=== PATIENT | male | born 1955 | race Caucasian/White ===

== ENCOUNTER 2020-10-03 12:22 | Emergency (ER) | payer OTHER ==
--- NOTE | 2020-10-03 13:54 | ED Physician Documentation ---
PD HPI UPPER EXT INJURY - Stated complaint Stated Complaint: RIGHT THUMB PX - Chief complaint Chief Complaint: Ext Problem - History obtained from History obtained from: Patient - Additonal information Additional information: Patient comes emergency department chief complaint of pain in the tip of right thumb. He states is been going on about a week, and is not really sure what he did to himself. He noticed a subungual hematoma that came up around that time, and also noticed what appeared to be a superficial puncture on his thumb tip. He states that he had been cutting brush including a lot of stickers and that although he was wearing gloves, there was a hole in the tip of his right thumb in the glove and that he may have been poked through there. Patient denies any fevers or chills. He states the thumb tip feels swollen but he has not noticed the swelling spreading. He states it does not keep him awake at night, but he does notice the discomfort a little. No streaking or fevers or chills. No direct trauma that he knows of. Patient denies any other complaints at this time. Review of Systems Ten Systems: 10 systems reviewed and negative Constitutional: reports: Reviewed and negative Eyes: reports: Reviewed and negative Ears: reports: Reviewed and negative Nose: reports: Reviewed and negative Throat: reports: Reviewed and negative Cardiac: reports: Reviewed and negative Respiratory: reports: Reviewed and negative GI: reports: Reviewed and negative : reports: Reviewed and negative Skin: reports: Reviewed and negative Musculoskeletal: reports: Extremity pain, Extremity swelling Neurologic: reports: Reviewed and negative Psychiatric: reports: Reviewed and negative Endocrine: reports: Reviewed and negative Immunocompromised: reports: Reviewed and negative PD PAST MEDICAL HISTORY - Allergies Allergies/Adverse Reactions: Allergies Allergy/AdvReac Type Severity Reaction Status Date / Time No Known Drug Allergies Allergy Verified 10/03/20 12:29 PD ED PE NORMAL - Vitals Vital signs reviewed: Yes - General General: Alert and oriented X 3, No acute distress, Well developed/nourished - HEENT HEENT: Atraumatic, PERRL, EOMI, Moist mucous membranes - Neck Neck: Supple, no meningeal sign - Cardiac Cardiac: Strong equal pulses - Respiratory Respiratory: No respiratory distress - Derm Derm: Normal color, Warm and dry, No rash, Other (No erythema or induration of right thumb. 0.5 cm subungual hematoma, which appears older.) - Extremities Extremities: No deformity, Other (Slight edema right distal thumb) - Neuro Neuro: Alert and oriented X 3, canteen attendant 2-12 intact, No motor deficit, No sensory deficit, Normal speech - Psych Psych: Normal mood, Normal affect Results - Vitals Vitals: Vital Signs - 24 hr 10/03/20 12:25 Temperature 36.6 C Heart Rate 78 Respiratory 16 Rate Blood Pressure 134/85 H O2 Saturation 95 Oxygen O2 Source Room air PD MEDICAL DECISION MAKING - ED course Complexity details: considered differential, d/w patient ED course: I discussed with the patient that I am not sure what has caused his subungual hematoma, or why his thumb is tender and a little edematous. There is no evidence of a retained foreign body, and patient states that he does not think that anything would have penetrated deeply, anyway. It is hard to imagine that any small foreign material that went in the volar surface of his thumb pad would have been able to get around the bone to create the hematoma in the location that the patient has it. I have discussed with the patient that I do not want to try to remove any sort of splinter or other foreign material from his thumb without imaging, and even then, that this is very difficult. The patient is quite sure he did not have any opportunity to have a metallic or plastic foreign body enter his thumb and thinks if anything it would have been a thorn poked him. We have discussed the signs of infection, of which I do not find any in this patient. I discussed with him that most likely, his symptoms will be self- limited and will blow over on their own. We have discussed the usual indications for return. Departure - Departure Disposition: 01 Home, Self Care Clinical Impression: Finger pain, right Condition: Stable Instructions: ED Contusion Finger Comments: There is no evidence of infection of your thumb. It is not clear exactly what has caused the bleeding under your nail, but it is highly unlikely that any sort of foreign material could have reached that spot by going in to the pad of your thumb, as the bones in the way. You may have a small sliver/foreign body in your thumb, but there is no way that this will be able to be found and removed. Your body will ultimately push the sliver to the surface if there is a sliver there, or if it is small enough, your body will simply break it down and get rid of it on its own. You may use ice to help with the pain and swelling. If it appears that a sliver is working its way toward the surface, you may try hot soaks to help encourage the sliver to come up. If you begin to notice deepening redness of your thumb, or if you have redness or swelling or firmness spreading down the thumb, then you should have it rechecked as you may be developing infection. However, there is no evidence of that at this time.
[2020-10-03 14:08] VITALS: BP 138/74
== END 2020-10-03 14:08 | disposition home or self-care (01) ==
LOC: ED 12:22
DX: M79.644 Pain in right finger(s) (principal); S60.111A Contusion of right thumb with damage to nail, initial encounter; X58.XXXA Exposure to other specified factors, initial encounter
CPT/HCPCS: 99281; 99282

== ENCOUNTER 2021-11-24 09:17 | Outpatient (CLI) | payer MEDICARE, OTHER ==
[2021-11-24 15:46] LABS: BASOPHILS # (AUTO) 0.1 10^3/uL (0.0-0.1); BASOPHILS % (AUTO) 1.2 %; EOSINOPHILS # (AUTO) 0.5 10^3/uL (0.0-0.7); EOSINOPHILS % (AUTO) 10.3 %; HCT - HEMATOCRIT 44.7 % (42.0-52.0); HGB - HEMOGLOBIN 15.9 g/dL (14.0-18.0); LYMPHOCYTES # (AUTO) 1.4 10^3/uL (1.5-3.5); LYMPHOCYTES % (AUTO) 27.4 %; MEAN CORPUSCULAR HEMOGLOBIN 35.3 pg (27.0-31.0); MEAN CORPUSCULAR HGB CONC 35.6 g/dL (32.0-36.0); MEAN CORPUSCULAR VOLUME 99.3 fL (80.0-94.0); MEAN PLATELET VOLUME 9.4 fL (7.4-11.4); MONOCYTES # (AUTO) 0.5 10^3/uL (0.0-1.0); MONOCYTES % (AUTO) 10.1 %; NEUTROPHILS # (AUTO) 2.5 10^3/uL (1.5-6.6); NEUTROPHILS % (AUTO) 50.4 %; PLT - PLATELET COUNT 247 10^3/uL (130-450); RED CELL DISTRIBUTION WIDTH 13.6 % (12.0-15.0)
[2021-11-24 15:48] LABS: BILIRUBIN,URINE NEGATIVE (NEGATIVE); GLUCOSE, URINE (UA) NEGATIVE (NEGATIVE); KETONES,URINE (UA) NEGATIVE (NEGATIVE); LEUKOCYTE ESTERASE, URINE NEGATIVE (NEGATIVE); NITRITE,URINE NEGATIVE (NEGATIVE); OCCULT BLOOD,URINE NEGATIVE (NEGATIVE); PROTEIN,URINE NEGATIVE (NEGATIVE); UROBILINOGEN,URINE 0.2 (NORMAL) E.U./dL (NORMAL)
[2021-11-24 16:03] LABS: BACTERIA,URINE None Seen /HPF (None Seen); CLARITY,URINE CLEAR (CLEAR); RBC,URINE None Seen /HPF (0-5); SQUAMOUS EPITHELIAL CELL,UR NONE SEEN (<= Few); WBC,URINE 0-3 /HPF (0-3)
[2021-11-24 16:08] LABS: ALBUMIN 4.8 g/dL (3.2-5.5); ALBUMIN/GLOBULIN RATIO 1.6 (1.0-2.2); ALKALINE PHOSPHATASE 61 IU/L (42-121); ALT ALANINE AMINOTRANSFERASE 32 IU/L (10-60); AST ASPARTATE AMINOTRANSFERASE 33 IU/L (10-42); BUN - BLOOD UREA NITROGEN 17 mg/dL (6-20); CALCIUM 10.1 mg/dL (8.5-10.3); CARBON DIOXIDE - CO2 30 mmol/L (21-32); CHLORIDE 97 mmol/L (101-111); CHOL/HDL RATIO 2.3 (<5.0); CHOLESTEROL 272 mg/dL; CREATININE 0.7 mg/dL (0.6-1.2); GFR - MDRD 113 (>89); GLUCOSE 93 mg/dL (70-100); HDL CHOLESTEROL 120 mg/dL; LDL CHOLESTEROL,CALCULATED 142 mg/dL; LDL/HDL RATIO 1.2 (<3.6); POTASSIUM 3.8 mmol/L (3.5-5.0); SODIUM 135 mmol/L (135-145); TOTAL PROTEIN 7.8 g/dL (6.7-8.2); TRIGLYCERIDES 50 mg/dL; VLDL CHOLESTEROL 10 mg/dL
[2021-11-24 16:11] LABS: PSA TOTAL 0.857 ng/mL (0.000-2.000)
== END 2021-11-24 23:59 | disposition home or self-care (01) ==
LOC: LAB.R 09:17
PROVIDERS: ATTEND Internal Medicine
DX: Z00.00 Encounter for general adult medical examination without abnormal findings (principal); E78.5 Hyperlipidemia, unspecified; N40.0 Benign prostatic hyperplasia without lower urinary tract symptoms; I47.1 Supraventricular tachycardia; G37.3 Acute transverse myelitis in demyelinating disease of central nervous system
CPT/HCPCS: 80053; 80061; 81001; 83721; 84153; 84443; 85025; 87086

== ENCOUNTER 2022-01-24 11:57 | Outpatient (CLI) | payer MEDICARE, OTHER ==
--- NOTE | 2022-01-24 13:22 | XRAY Report ---
PROCEDURE: Chest 2 View X-Ray INDICATIONS: COUGH TECHNIQUE: 2 views of the chest were acquired. COMPARISON: None FINDINGS: Surgical changes and devices: None. Lungs and pleura: No pleural effusions or pneumothorax. Lungs are clear. Mediastinum: Mediastinal contours are normal. Heart size is normal. Bones and chest wall: No suspicious bony abnormalities. Soft tissues appear unremarkable. IMPRESSION: No acute cardiopulmonary disease process. Reviewed by: Becki Stanton MD, PhD on 01/24/2022 1:21 PM PST Approved by: Becki Stanton MD, PhD on 01/24/2022 1:21 PM [facility] Station ID: [id number]
== END 2022-01-24 11:58 | disposition home or self-care (01) ==
LOC: DI 11:57
PROVIDERS: ATTEND Internal Medicine
DX: R05.9 Cough, unspecified (principal)

== ENCOUNTER 2023-02-28 10:00 | Outpatient (CLI) | payer MEDICARE, OTHER ==
[2023-02-28 10:12] LABS: BASOPHILS # (AUTO) 0.1 10^3/uL (0.0-0.1); BASOPHILS % (AUTO) 1.2 %; EOSINOPHILS # (AUTO) 0.3 10^3/uL (0.0-0.7); EOSINOPHILS % (AUTO) 6.9 %; HCT - HEMATOCRIT 48.2 % (42.0-52.0); HGB - HEMOGLOBIN 15.5 g/dL (14.0-18.0); LYMPHOCYTES # (AUTO) 1.4 10^3/uL (1.5-3.5); LYMPHOCYTES % (AUTO) 31.8 %; MEAN CORPUSCULAR HEMOGLOBIN 30.3 pg (27.0-31.0); MEAN CORPUSCULAR HGB CONC 32.2 g/dL (32.0-36.0); MEAN CORPUSCULAR VOLUME 94.1 fL (80.0-94.0); MEAN PLATELET VOLUME 8.3 fL (7.4-11.4); MONOCYTES # (AUTO) 0.4 10^3/uL (0.0-1.0); MONOCYTES % (AUTO) 9.4 %; NEUTROPHILS # (AUTO) 2.2 10^3/uL (1.5-6.6); PLT - PLATELET COUNT 238 10^3/uL (130-450); RED BLOOD COUNT 5.12 10^6/uL (4.70-6.10); RED CELL DISTRIBUTION WIDTH 13.7 % (12.0-15.0); WHITE BLOOD COUNT 4.3 x10^3/uL (4.8-10.8)
[2023-02-28 10:18] LABS: BILIRUBIN,URINE NEGATIVE (NEGATIVE); GLUCOSE, URINE (UA) NEGATIVE (NEGATIVE); KETONES,URINE (UA) NEGATIVE (NEGATIVE); LEUKOCYTE ESTERASE, URINE NEGATIVE (NEGATIVE); NITRITE,URINE NEGATIVE (NEGATIVE); OCCULT BLOOD,URINE NEGATIVE (NEGATIVE); PROTEIN,URINE NEGATIVE (NEGATIVE); UROBILINOGEN,URINE 0.2 (NORMAL) E.U./dL (NORMAL)
[2023-02-28 10:23] LABS: CLARITY,URINE CLEAR (CLEAR)
[2023-02-28 10:34] LABS: ALBUMIN 4.6 g/dL (3.2-5.5); ALBUMIN/GLOBULIN RATIO 1.7 (1.0-2.2); ALKALINE PHOSPHATASE 60 IU/L (42-121); ALT ALANINE AMINOTRANSFERASE 26 IU/L (10-60); AST ASPARTATE AMINOTRANSFERASE 23 IU/L (10-42); BILIRUBIN,TOTAL 0.8 mg/dL (0.2-1.0); BUN - BLOOD UREA NITROGEN 16 mg/dL (6-20); CALCIUM 10.2 mg/dL (8.5-10.3); CARBON DIOXIDE - CO2 31 mmol/L (21-32); CHLORIDE 102 mmol/L (101-111); CHOL/HDL RATIO 2.7 (<5.0); CHOLESTEROL 261 mg/dL; CREATININE 0.7 mg/dL (0.6-1.3); GFR - MDRD 112 (>89); GLUCOSE 107 mg/dL (74-104); HDL CHOLESTEROL 98 mg/dL; LDL CHOLESTEROL,CALCULATED 147 mg/dL; LDL/HDL RATIO 1.5 (<3.6); SODIUM 138 mmol/L (135-145); TOTAL PROTEIN 7.3 g/dL (6.4-8.9); TRIGLYCERIDES 79 mg/dL (48-352); VLDL CHOLESTEROL 16 mg/dL
[2023-02-28 10:50] LABS: BACTERIA,URINE None Seen /HPF (None Seen); RBC,URINE 0-5 /HPF (0-5); SQUAMOUS EPITHELIAL CELL,UR NONE SEEN (<= Few); WBC,URINE 0-3 /HPF (0-3)
[2023-02-28 11:16] LABS: THYROID STIMULATING HORMONE 1.88 uIU/mL (0.34-5.60)
== END 2023-02-28 10:01 | disposition home or self-care (01) ==
LOC: LAB 10:00
PROVIDERS: ATTEND Internal Medicine
DX: Z00.00 Encounter for general adult medical examination without abnormal findings (principal); N40.0 Benign prostatic hyperplasia without lower urinary tract symptoms; E78.5 Hyperlipidemia, unspecified; Z79.899 Other long term (current) drug therapy
CPT/HCPCS: 36415; 80053; 80061; 81001; 83721; 84153; 84154; 84443; 85025; 87086

== ENCOUNTER 2023-10-02 10:21 | Outpatient (CLI) | payer MEDICARE, OTHER ==
--- NOTE | 2023-10-02 14:21 | MRI Report ---
Hip LT WO CLINICAL HISTORY: 68 years of age, Male, L HIP PAIN. COMPARISON: None Technique: Multisequence, multiplanar MRI of the left hip was performed without contrast. IV CONTRAST: Not given FINDINGS: Labrum: Anterior superior labral tear. In addition, there is tear of the superior posterior labrum, extending to the posterior labrum, with associated subchondral marrow edema of the posterior acetabul um and the superior aspect of the left femoral head, degenerative. Punctate paralabral cyst about the superior posterior labrum (series 5, image 15). Ligaments: Unremarkable. Tendons: The left iliopsoas, adductor, hamstring, left gluteal minimus are unremarkable. Mild periten dinitis of the left gluteal medius. Osseous and cartilaginous structures: Moderate degenerative changes of the left hip. Mild subchondral marrow edema of the left superior acetabulum, degenerative. No acute fracture of the left hip. No av ascular necrosis of the left hip. Moderate chondral thinning of the left femoral head. Sacroiliac joints and spine: Posterior fusion instrumentation of the lower lumbar spine, partially vi sualized. The visualized sacrum is intact. Bilateral sacroiliac joints are unremarkable. Mild degener ative changes of the right hip with subchondral cystic changes in the right superior acetabulum, and multifocal mild subchondral marrow edema in the femoral head. Miscellaneous: Mild sigmoid colon diverticulosis. Hypertrophic nodules is seen in the prostate. IMPRESSION: 1.Moderate changes of the left hip with labral tear, subchondral marrow edema, and punctate paralabra l cyst. 2.Mild peritendinitis of the left gluteal medius. 3.Mild degenerative change of the right hip. Reviewed by: Sabi Denney MD on 10/02/2023 2:20 PM PDT Approved by: Sabi Denney MD on 10/02/2023 2:20 PM PDT Station ID: [id number]
== END 2023-10-02 10:22 | disposition home or self-care (01) ==
LOC: DI 10:21
PROVIDERS: ATTEND Internal Medicine
DX: S73.102A Unspecified sprain of left hip, initial encounter (principal); R93.6 Abnormal findings on diagnostic imaging of limbs; R93.89 Abnormal findings on diagnostic imaging of other specified body structures; M76.02 Gluteal tendinitis, left hip; M16.11 Unilateral primary osteoarthritis, right hip